=== PATIENT | female | born 1940 | race Two or more races ===

== ENCOUNTER 2024-09-03 16:40 | Emergency (ER) | payer OTHER ==
[~2024-09-03] VITALS: Ht 162.6 cm; Wt 55.0 kg
--- NOTE | 2024-09-03 16:52 | ECG ---
[facility] Test Date: 2024-09-03 Test Time: 16:45:18 Pat Name: LATONIA CASTELAN Department: er Room: Gender: F Sales And Leasing Consultant: luh : 1940 Requested By: EMERGENCY EMERGENCY Order Number: [id number] Reading MD: Measurements Intervals [place] Rate: 96 P: 0 OK: 0 QRS: 193 QRSD: 99 T: 67 QT: 393 QTc: 497 Interpretive Statements Atrial fibrillation Right axis deviation Consider left ventricular hypertrophy Anterior Q waves, possibly due to LVH Please click the below link to view image of tracing.
--- NOTE | 2024-09-03 17:30 | DVH ---
EXAM: XR Chest, 1 View CLINICAL INDICATION: sob TECHNIQUE: Frontal view of the chest. COMPARISON: None FINDINGS: LUNGS AND PLEURAL SPACES: Bilateral pleural effusions. Left basilar. HEART: Cardiomegaly with mild congestion. MEDIASTINUM: Unremarkable. Normal mediastinal contour. BONES/JOINTS: Unremarkable. No acute fracture. OTHER FINDINGS: . IMPRESSION: 1. Cardiomegaly with mild congestion. 2. Bilateral pleural effusions.
--- NOTE | 2024-09-03 17:48 | DVH ---
Bilateral lower extremity venous duplex Clinical History: ble edema Comparison: None Technique: Duplex Doppler evaluation of the deep venous systems of both lower extremities from the co mmon femoral veins to the popliteal veins including color Doppler and spectral/pulsed waveform analys is was performed. Findings: RIGHT SIDE: The common femoral vein demonstrates appropriate compressibility and waveform variability. There is compressibility/patency of the great saphenous vein at the proximal thigh. The femoral vein demonstrates appropriate compressibility and waveform variability. The deep femoral vein demonstrates appropriate compressibility and waveform variability. The popliteal vein demonstrates appropriate compressibility and waveform variability. There is color flow at the tibioperoneal trunk and in the posterior tibial vein. LEFT SIDE: The common femoral vein demonstrates appropriate compressibility and waveform variability. There is compressibility/patency of the great saphenous vein at the proximal thigh. The femoral vein demonstrates appropriate compressibility and waveform variability. The deep femoral vein demonstrates appropriate compressibility and waveform variability. The popliteal vein demonstrates appropriate compressibility and waveform variability. There is color flow at the tibioperoneal trunk and in the posterior tibial vein. Impression: 1. No right or left femoropopliteal venous thrombosis.
[2024-09-03 17:55] VITALS: PULSE 118; RESP 32; O2SAT 97
[2024-09-03 17:57] LABS: Urine Bacteria MANY /hpf (None Seen); Urine Blood 2+ /uL (Negative); Urine Budding Yeast MODERATE /hpf (None Seen); Urine Clarity Ex.Turbid (Clear); Urine Color Light-Orange (Yellow); Urine Mucus FEW (None Seen); Urine Protein, UAD 1+ (Negative); Urine Specific Gravity 1.022 (1.001-1.035); Urine Squamous Epithelial Cell FEW /hpf (<5); Urine Urobilinogen 2 mg/dL (Negative); Urine WBC 71 /HPF (0-5); Urine pH 5.5 (5.0-9.0)
[2024-09-03] MEDS: NITROGLYCERIN 2% OINT 1GM PKG TD ONE (18:01)
[2024-09-03] MEDS: FUROSEMIDE 40 MG/4 ML VIAL IV ONE (18:01)
[2024-09-03 18:51] LABS: Basophils # (auto) 0.1 10 ^3/uL (0-0.2); Basophils % (auto) 1.9 % (0.0-2.0); Eosinophils # (auto) 0.3 10 ^3/uL (0-0.8); Eosinophils % (auto) 6.6 % (0.0-7.0); Hematocrit 34.5 % (36.0-46.0); Hemoglobin 10.9 g/dL (12.2-16.2); Lymphocytes # (auto) 0.9 10 ^3/uL (0.4-5.4); Lymphocytes % (auto) 19.9 % (10.0-50.0); Mean Corpuscular Hemoglobin 28.9 pg (28.0-32.0); Mean Corpuscular Hgb Conc. 31.5 g/dL (32.0-36.0); Mean Corpuscular Volume 91.5 fL (80.0-100.0); Monocytes # (auto) 0.6 10 ^3/uL (0-1.3); Monocytes % (auto) 12.2 % (0.0-12.0); Neutrophils # (auto) 2.7 10 ^3/uL (1.6-8.6); Neutrophils % (auto) 59.4 % (37.0-80.0); Nucleated Red Blood Cells % 0.1 %; Platelet Count (auto) 179 10^3/uL (140-450); Red Blood Cells 3.77 10^6/uL (4.0-5.20); Red Cell Distribution Width 17.8 % (11.8-14.3); White Blood Cell 4.5 10^3/uL (4.4-10.8)
[2024-09-03 19:02] LABS: Alanine Aminotransferase 12 U/L (7-40); Albumin 3.9 g/dL (3.2-4.8); Alkaline Phosphatase 82 U/L (46-116); Anion Gap 10 (5-15); Calcium 9.3 mg/dL (8.7-10.4); Carbon Dioxide 24 mmol/L (20-31); Potassium 3.8 mmol/L (3.5-5.1); Sodium 143 mmol/L (136-145); Total Protein 6.9 g/dL (5.7-8.2)
[2024-09-03 19:05] LABS: Aspartate Aminotransferase 11 U/L (13-40); Blood Urea Nitrogen 29 mg/dL (9-23); Chloride 109 mmol/L (98-107); Glucose 71 mg/dL (74-106)
[2024-09-03 19:09] LABS: INR 1.57 (0.9-1.15); Partial Thromboplastin Time 50.7 SEC (24.5-34.5); Prothrombin Time 15.9 sec (9.3-11.8)
[2024-09-03 19:30] VITALS: PULSE 112; RESP 25; O2SAT 97
--- NOTE | 2024-09-03 20:50 | ED.PDOC ---
SOB-HPI HPI Comments 84-year-old female brought in by EMS from [facility] for evaluation of shortness of breath. Patient states she has been short of breath since yesterday afternoon, and reports worse symptoms when trying to lie flat and relief of symptoms with sitting up and leaning forward. Patient states she has a history of congestive heart failure but does not take any diuretics. She denies any fever, cough or chest pain, however does note lower extremity sw elling that is new. EMS reports patient was saturating in the low 90s on room air on their arrival, and received a DuoNeb treatment at the urgent care, which somewhat improved her symptoms. Chief Complaint: Shortness of Breath Time Seen by MD: 16:53 Reviewed notes: Nurses Notes, Scientific Diver Notes Information Source: Patient Mode of Arrival: EMS Past Medical History PAST MEDICAL HISTORY: AFIB, Anemia, CHF, High Lipids, HTN Surgical History: Denies all surgeries EGG GATHERER History: No Pertinent EGG GATHERER History Family History Family History: Reviewed,noncontributory to illness Social History Smoker: Non-Smoker Alcohol: Denies ETOH Use Drugs: Denies Drug Use Lives In: Home All Other Systems: Reviewed and Negative (Comprehensive systems review obtained and negative except for what is stated in the HPI.) Physical Exam General Appearance: No Apparent Distress HEENT: Other (Pupils and face symmetric. Moist mucous membranes.) Neck: Full Range of Motion, Non-Tender, Normal Inspection, Supple Respiratory: No Accessory Muscle Use, No Respiratory Distress, Rales (Bilateral bases) Cardiovascular: No JVD, Regular Rate/Rhythm Breast Exam: Deferred Gastrointestinal: Non Tender, Soft Genitalia: Deferred Pelvic: Deferred Rectal: Deferred Extremities: Leg edema, Normal range of motion, Pedal edema Neurologic: Alert (Oriented x4), Normal Affect, Normal Mood, Other (Able to ambulate from account services specialist gurney to hospital bed. No gross focal deficit.) Cerebellar Function: NOT DONE Reflexes: NOT DONE Skin: Dry, Normal Color, Warm Lymphatic: NOT DONE EKG EKG : Comments AFib, rate 96, normal QRS interval, QTC prolonged at 497, normal axis, possible old anteroseptal infarct, nonspecific T changes. Was a procedure done? Was a procedure done?: No Differential Dx Differential Diagnosis: Asthma, Bronchitis, CHF, COPD, Dysrhythmia, Hyperventilation, Panic Attack, Pneumonia, Pulmonary Embolism, Respiratory Distress, URI X-Ray, Labs, Meds, VS Vital Signs Date Time Temp Pulse Resp B/P (MAP) Pulse Ox O2 Delivery O2 Flow Rate FiO2 09/03/24 21:00 99 27 110/66 (81) 99 09/03/24 19:30 98.2 112 22 102/58 (73) 97 98.2 09/03/24 19:30 112 25 97 Room Air* 0 21 09/03/24 18:01 105/83 09/03/24 18:01 105/83 09/03/24 17:55 118 32 97 Room Air* 0 21 09/03/24 17:54 98.2 118 32 105/83 (90) 97 98.2 09/03/24 16:57 24 99 Room Air* 0 09/03/24 16:54 98.4 90 24 139/54 (82) 99 09/03/24 16:45 96 Lab Test 09/03/24 22:23 09/03/24 22:01 09/03/24 21:23 09/03/24 18:21 Range/Units POC Glucose 93 63 L 70-106 mg/dl Troponin I High Sensitivity 31 30 </=34 ng/L White Blood Count 4.5 4.4-10.8 10^3/uL Red Blood Count 3.77 L 4.0-5.20 10^6/uL Hemoglobin 10.9 L 12.2-16.2 g/dL Hematocrit 34.5 L 36.0-46.0 % Mean Corpuscular Volume 91.5 80.0-100.0 fL Mean Corpuscular Hemoglobin 28.9 28.0-32.0 pg Mean Corpuscular Hemoglobin Concent 31.5 L 32.0-36.0 g/dL Red Cell Distribution Width 17.8 H 11.8-14.3 % Platelet Count 179 140-450 10^3/uL Mean Platelet Volume 9.7 6.9-10.8 fL Neutrophils (%) (Auto) 59.4 37.0-80.0 % Lymphocytes (%) (Auto) 19.9 10.0-50.0 % Monocytes (%) (Auto) 12.2 H 0.0-12.0 % Eosinophils (%) (Auto) 6.6 0.0-7.0 % Basophils (%) (Auto) 1.9 0.0-2.0 % Neutrophils # (Auto) 2.7 1.6-8.6 10 ^3/uL Lymphocytes # (Auto) 0.9 0.4-5.4 10 ^3/uL Monocytes # (Auto) 0.6 0-1.3 10 ^3/uL Eosinophils # (Auto) 0.3 0-0.8 10 ^3/uL Basophils # (Auto) 0.1 0-0.2 10 ^3/uL Nucleated Red Blood Cells 0.1 % Prothrombin Time 15.9 H 9.3-11.8 sec Prothrombin Time INR 1.57 H 0.9-1.15 Activated Partial Thromboplast Time 50.7 H 24.5-34.5 SEC Sodium Level 143 136-145 mmol/L Potassium Level 3.8 3.5-5.1 mmol/L Chloride Level 109 H 98-107 mmol/L Carbon Dioxide Level 24 20-31 mmol/L Anion Gap 10 5-15 Blood Urea Nitrogen 29 H 9-23 mg/dL Creatinine 1.16 H 0.550-1.02 mg/dL Glomerular Filtration Rate Calc 47 >90 mL/min BUN/Creatinine Ratio 25.0 H 10.0-20.0 Serum Glucose 71 L 74-106 mg/dL Calcium Level 9.3 8.7-10.4 mg/dL Total Bilirubin 1.0 0.2-1.0 mg/dL Aspartate Amino Transferase (AST) 11 L 13-40 U/L Alanine Aminotransferase (ALT) 12 7-40 U/L Alkaline Phosphatase 82 46-116 U/L B-Type Natriuretic Peptide 1820.26 0-100 pg/mL Total Protein 6.9 5.7-8.2 g/dL Albumin 3.9 3.2-4.8 g/dL Test 09/03/24 16:14 Range/Units Urine Color Light-orange Yellow Urine Clarity Ex.turbid Clear Urine pH 5.5 5.0-9.0 Urine Specific Dante 1.022 1.001-1.035 Urine Protein 1+ H Negative Urine Ketones Negative Negative Urine Blood 2+ H Negative /uL Urine Nitrite Negative Negative Urine Bilirubin Negative Negative Urine Urobilinogen 2 H Negative mg/dL Urine Leukocyte Esterase 2+ Negative /uL Urine RBC 4 0 - 4 /hpf Urine Microscopic WBC 71 H 0-5 /HPF Urine Squamous Epithelial Cells Few <5 /hpf Urine Bacteria Many H None Seen /hpf Urine Mucus Few None Seen Urine Yeast (Budding) Moderate None Seen /hpf Urine Glucose 2+ H Normal mg/dL Current Medications Medications (Trade) Dose Ordered Sig/Anika Route Start Time Stop Time Status Last Admin Furosemide (Lasix Injection) 40 mg ONCE ONCE IV 09/03/24 17:00 09/03/24 17:03 DC 09/03/24 18:01 Ceftriaxone Sodium 50 ml @ 100 mls/hr ONCE ONCE IV 09/03/24 21:00 09/03/24 21:29 DC 09/03/24 21:53 PROCEDURE(s): CXRP - CHEST PORTABLE REASON: sob ORDER NUMBER(s): [id number], ACCESSION NUMBER(s): [id number] EXAM: XR Chest, 1 View CLINICAL INDICATION: sob TECHNIQUE: Frontal view of the chest. COMPARISON: None FINDINGS: LUNGS AND PLEURAL SPACES: Bilateral pleural effusions. Left basilar. HEART: Cardiomegaly with mild congestion. MEDIASTINUM: Unremarkable. Normal mediastinal contour. BONES/JOINTS: Unremarkable. No acute fracture. OTHER FINDINGS: . IMPRESSION: 1. Cardiomegaly with mild congestion. 2. Bilateral pleural effusions. EDURE(s): BLDVT - BiLat Lower DVT REASON: ble edema ORDER NUMBER(s): [id number], ACCESSION NUMBER(s): [id number] Bilateral lower extremity venous duplex Clinical History: ble edema Comparison: None Technique: Duplex Doppler evaluation of the deep venous systems of both lower extremities from the common femoral veins to the popliteal veins including color Doppler and spectral/pulsed waveform analysis was performed. Findings: RIGHT SIDE: The common femoral vein demonstrates appropriate compressibility and waveform variability. There is compressibility/patency of the great saphenous vein at the proximal thigh. The femoral vein demonstrates appropriate compressibility and waveform variability. The deep femoral vein demonstrates appropriate compressibility and waveform variability. The popliteal vein demonstrates appropriate compressibility and waveform variability. There is color flow at the tibioperoneal trunk and in the posterior tibial vein. LEFT SIDE: The common femoral vein demonstrates appropriate compressibility and waveform variability. There is compressibility/patency of the great saphenous vein at the proximal thigh. The femoral vein demonstrates appropriate compressibility and waveform variability. The deep femoral vein demonstrates appropriate compressibility and waveform variability. The popliteal vein demonstrates appropriate compressibility and waveform variability. There is color flow at the tibioperoneal trunk and in the posterior tibial vein. Impression: 1. No right or left femoropopliteal venous thrombosis. X-Ray, Labs, Meds, VS Comment 84-year-old female with a history of AFib, CHF, hypertension, dyslipidemia and anemia brought in by EMS from [facility] for evaluation of shortness of breath, orthopnea and lower extremity edema Vitals remarkable for respiratory rate 24, BP 139/54 Exam remarkable for bilateral basilar rales, tachypnea, 2+ pitting edema bilateral lower extremities Rhythm strip independently interpreted by me: AFib, rate 96, no PVCs. Chest x-ray IMPRESSION: 1. Cardiomegaly with mild congestion. 2. Bilateral pleural effusions. Bilateral lower extremity ultrasound Impression: 1. No right or left femoropopliteal venous thrombosis. CBC unremarkable, metabolic panel remarkable for BUN 29, creatinine 1.16, glucose 71, BNP 1820.26, troponin 30, UA abnormal consistent with UTI Patient treated with the following in the ED: Nitro-Bid 1/2 inch to chest wall, Lasix 40 mg IV, Rocephin 1 g IV On re-evaluation, patient is resting comfortably with stable vitals. Oxygen saturation is 99% on room air. Plan is to admit or transfer the patient for diuresis and IV antibiotics to treat her UTI. Discussed with [facility] , who will arrange for the patient to be transferred to [facility]. Authorization [id number]. Time of 1ST Reevaluation: 20:49 Reevaluation 1ST: Improved Patient Education/Counseling: Diagnosis, Treatment Family Education/Counseling: No Family Present Departure 1 Departure Time of Disposition: 20:49 Impression: Primary Impression: CHF exacerbation Qualified Codes: I50.9 - Heart failure, unspecified Additional Impressions: Pleural effusion UTI (urinary tract infection) Qualified Codes: N39.0 - Urinary tract infection, site not specified Hypoglycemia Disposition: SHORT TERM HOSPITAL Admit to: [facility] Condition: Guarded Critical Care Note Critical Care Time?: No Stability Stability form required: No Heart Score Heart Score: Heart Score Response (Comments) Value History N/A 0 EKG N/A 0 Age N/A 0 Risk Factors N/A 0 Troponin N/A 0 Total 0 AU ANDREW WARREN MD Sep 03, 2024 20:50
[2024-09-03] MEDS: cefTRIAXone 1GM/50ML D5W 50 ML IV ONE (21:53)
[2024-09-04 00:50] VITALS: BP 128/68; PULSE 109; RESP 22; TEMP 97.5; O2SAT 96
== END 2024-09-04 01:15 | disposition short-term general hospital (02) ==
LOC: EDBD 16:40 → ER 16:40
DX: I11.0 Hypertensive heart disease with heart failure (principal); I50.9 Heart failure, unspecified; N39.0 Urinary tract infection, site not specified; E16.2 Hypoglycemia, unspecified; I48.91 Unspecified atrial fibrillation; E78.5 Hyperlipidemia, unspecified; Z86.2 Personal history of diseases of the blood and blood-forming organs and certain disorders involving the immune mechanism
CPT/HCPCS: 36415; 51702; 71045; 80053; 81001; 82947; 83880; 84484; 85025; 85610; 85730; 93005; 93970; 96365; 96375; 99285; J0696; J1940; 82962